=== PATIENT | male | born 1945 | race Caucasian/White ===

== ENCOUNTER 2019-01-28 18:30 | Emergency (ER) | payer BC ==
[2019-01-28] MEDS ORDERED: IPRATROPIUM/ALBUTEROL (0.5MG/3MG) NEB INH ONE (18:56)
[2019-01-28] MEDS ORDERED: METHYLPREDNISOLONE PF 125MG/VIAL IVP ONE (18:56)
--- NOTE | 2019-01-28 19:05 | Emergency Department Record ---
History of Present Illness - General Chief Complaint: Shortness of breath Stated Complaint: FLORA Time Seen by Provider: 01/28/19 18:48 Source: Patient Mode of Arrival: Wheelchair Limitations: No limitations - History of Present Illness Initial Comments: pt has been increasingly sob over several days with sats down to upper 80s. hx copd. MD Complaint: Shortness of breath Onset/Timin -: Days(s) Consistency: Constant Improves With: Nothing Worsens With: Coughing Known History Of: COPD Associated Symptoms: Cough Treatments Prior to Arrival: None - Related Data Home Oxygen Therapy: Yes Home Oxygen Amount: 2 Liters Home Medications Medication Instructions Recorded Confirmed Last Taken Albuterol Sulfate [Proair Hfa] 1 - 2 puff IH .EVERY 4-6 HOURS PRN 01/28/19 01/28/19 Unknown Cyanocobalamin (Vitamin B-12) 1,000 mcg PO DAILY 01/28/19 01/28/19 Unknown [Vitamin B12] Glucos Sul 2Kcl/MSM/Chond/C/Mn 1 each PO BID 01/28/19 01/28/19 Unknown [Glucosamine Chondroitin Cap] Magnesium Oxide 400 mg PO DAILY 01/28/19 01/28/19 Unknown Potassium Chloride [Klor-Con M20] 20 meq PO DAILY 01/28/19 01/28/19 Unknown Previous Rx's Medication Instructions Recorded Amoxicillin/Potassium Clav 1 each PO BID #14 tablet 01/28/19 [Augmentin 875Mg/125Mg] Allergies Allergy/AdvReac Type Severity Reaction Status Date / Time Sulfa (Sulfonamide Allergy HIVES Verified 01/28/19 18:42 Antibiotics) Travel Screening - Travel/Exposure Within Last 30 Days Have you traveled within the last 30 days?: No Review of Systems Reviewed: No additional complaints except as noted below Constitutional: Reports: As per HPI. Denies: Chills, Fever, Malaise, Night sweats, Weakness, Weight change Eyes: Reports: As per HPI. Denies: Eye discharge, Eye pain, Photophobia, Vision change ENT: Reports: As per HPI. Denies: Congestion, Dental pain, Ear pain, Epistaxis, Hearing loss, Throat pain Respiratory: Reports: As per HPI, Cough, Dyspnea. Denies: Hemoptysis, Stridor, Wheezes Cardiovascular: Reports: As per HPI. Denies: Arrhythmia, Chest pain, Dyspnea on exertion, Edema, Murmurs, Orthopnea, Palpitations, Paroxysmal nocturnal dyspnea, Rheumatic Fever, Syncope Endocrine: Reports: As per HPI. Denies: Fatigue, Heat or cold intolerance, Polydipsia, Polyuria Gastrointestinal: Reports: As per HPI. Denies: Abdominal pain, Constipation, Diarrhea, Hematemesis, Hematochezia, Melena, Nausea, Vomiting Genitourinary: Reports: As per HPI. Denies: Dysuria, Frequency, Hematuria, Incontinence, Retention, Testicular pain, Testicular mass, Urgency Musculoskeletal: Reports: As per HPI. Denies: Arthralgia, Back pain, Gout, Joint swelling, Myalgia, Neck pain Skin: Reports: As per HPI. Denies: Bruising, Change in color, Change in hair/nails, Lesions, Pruritus, Rash Neurological: Reports: As per HPI. Denies: Abnormal gait, Confusion, Headache, Numbness, Paresthesias, Seizure, Tingling, Tremors, Vertigo, Weakness Psychiatric: Reports: As per HPI. Denies: Anxiety, Auditory hallucinations, Depression, Homicidal thoughts, Suicidal thoughts, Visual hallucinations Hematological/Lymphatic: Reports: As per HPI. Denies: Anemia, Blood Clots, Easy bleeding, Easy bruising, Swollen glands Past Medical History - SOCIAL HISTORY Smoking Status: Former smoker Alcohol Use: None Drug Use: None - RESPIRATORY Hx Respiratory Disorders: Yes Hx COPD: Yes - CARDIOVASCULAR Hx Cardio Disorders: Yes Hx Irregular Heartbeat: Yes (afib) Hx Pacemaker/Defib: Yes - NEURO Hx Neuro Disorders: No - GI Hx GI Disorders: No - Hx Genitourinary Disorders: Yes Hx Kidney Stones: Yes - ENDOCRINE Hx Endocrine Disorders: Yes Hx Diabetes: Yes Hx Thyroid Disease: No - MUSCULOSKELETAL Hx Musculoskeletal Disorders: Yes Hx Arthritis: Yes - PSYCH Hx Psych Problems: No - HEMATOLOGY/ONCOLOGY Hx Hematology/Oncology Disorders: Yes Hx Anemia: Yes Family Medical History Any Significant Family History?: No Physical Exam - General General Appearance: Alert, Oriented x3, Cooperative, Mild distress - Head Head exam: Normal inspection - Eye Eye exam: Normal appearance, PERRL, EOMI Pupils: Normal accommodation - ENT ENT exam: Normal exam, Mucous membranes moist, Normal external ear exam, Normal orophraynx Ear exam: Normal external inspection. negative: External canal tenderness Nasal Exam: Normal inspection. negative: Discharge, Sinus tenderness Mouth exam: Normal external inspection, Tongue normal Teeth exam: Normal inspection. negative: Dental caries Throat exam: Normal inspection. negative: Tonsillar erythema, Tonsillar exudate - Neck Neck exam: Normal inspection, Full ROM. negative: Tenderness - Respiratory Respiratory exam: Decreased breath sounds. negative: Respiratory distress - Cardiovascular Cardiovascular Exam: Regular rate, Normal rhythm, Normal heart sounds - GI/Abdominal GI/Abdominal exam: Soft, Normal bowel sounds. negative: Tenderness - Rectal Rectal exam: Deferred - exam: Deferred - Extremities Extremities exam: Normal inspection, Full ROM, Normal capillary refill. negative: Tenderness - Back Back exam: Reports: Normal inspection, Full ROM. Denies: Muscle spasm, Rash noted, Tenderness - Neurological Neurological exam: Alert, CN II-XII intact, Normal gait, Oriented X3 - Psychiatric Psychiatric exam: Normal affect, Normal mood - Skin Skin exam: Dry, Intact, Normal color, Warm Course Vital Signs 01/28/19 18:31 Temperature 99.1 F Pulse Rate 74 Respiratory 24 Rate Blood Pressure 133/66 Pulse Ox 99 - Reevaluation(s) Reevaluation #1: 01/28/19 21:13 pt feels much better. he wants to go home Medical Decision Making - Lab Data Result diagrams: 01/28/19 18:40 01/28/19 18:40 Disposition Disposition: Discharge Clinical Impression: Pneumonia Qualifiers: Pneumonia type: due to unspecified organism Laterality: bilateral Lung loca tion: unspecified part of lung Qualified Code(s): J18.9 - Pneumonia, unspecified organism COPD (chronic obstructive pulmonary disease) Qualifiers: COPD type: COPD with acute lower respiratory infection Qualified Code(s): J44.0 - Chronic obstructive pulmonary disease with acute lower respiratory infection Disposition: Home, Self-Care Condition: (1) Good Instructions: Bacterial Pneumonia (ED), COPD (Chronic Obstructive Pulmonary Disease) (ED) Additional Instructions: follow up with family doctor in next 2 days. return sooner if worse. wear oxygen for next few days. Prescriptions: Amoxicillin/Potassium Clav [Augmentin 875Mg/125Mg] 1 each PO BID #14 tablet Forms: Patient Portal Access Quality - Quality Measures Quality Measures: N/A - Blood Pressure Screening Does Patient Have Any of the Following: No Blood Pressure Classification: Pre-Hypertensive BP Reading Systolic Measurement: 133 Diastolic Measurement: 66 Screening for High Blood Pressure: < Pre-Hypertensive BP, F/U Documented > [G8950] Pre-Hypertensive Follow-up Interventions: Follow-up with rescreen every year.
[2019-01-28 19:06] LABS: HEMATOCRIT 41.7 % (42.0-52.0); HEMOGLOBIN 13.6 gm/dl (14.0-18.0); MEAN CELL VOLUME 93.1 fl (81-97); MEAN CORPUSCULAR HEMOGLOBIN 30.3 pg (27-33); MEAN CORPUSCULAR HGB CONC 32.6 g/dl (32-36); MEAN PLATELET VOLUME 10.8 fl (7.4-10.4); PLATELET COUNT 239 K/uL (130-400); RED BLOOD COUNT 4.48 M/uL (4.40-5.70); RED CELL DISTRIBUTION WIDTH 14.5 % (11.5-14.5); WHITE BLOOD COUNT W/O DIFF 11.3 K/uL (4.2-12.2)
[2019-01-28 19:15] LABS: BLOOD UREA NITROGEN 16 mg/dL (8-23); CREATININE 0.9 mg/dL (0.7-1.2); EST GLOMERULAR FILTRATION RATE > 60 mL/min
[2019-01-28 19:16] LABS: TOTAL PROTEIN 7.1 g/dL (6.6-8.7)
[2019-01-28 19:18] LABS: GLUCOSE,RANDOM 124 mg/dL (74-109)
[2019-01-28 19:20] LABS: ALT/SGPT 19 U/L (<41); AST/SGOT 16 U/L (10.0-50.0)
[2019-01-28 19:21] LABS: ALB/GLOB RATIO 1.4 (1.1-1.8); ALBUMIN 4.1 g/dL (4.0-5.0); ALKALINE PHOSPHATASE 86 U/L (40-129)
[2019-01-28 19:22] LABS: ABSOLUTE NEUTROPHIL COUNT 9.94
[2019-01-28 19:31] LABS: INFLUENZA A NEGATIVE (NEGATIVE); INFLUENZA B NEGATIVE (NEGATIVE)
[2019-01-28] MEDS ORDERED: CEFTRIAXONE 1GM/50ML BAG 1 GM/50 ML BAG IVPB ONE (20:38)
[2019-01-28] MEDS ORDERED: LEVOFLOXACIN 250MG IVPB 250 MG/50 ML BAG IVPB ONE (20:40)
--- NOTE | 2019-01-30 13:59 | RADIOLOGY REPORT ---
EXAM: CHEST, TWO VIEWS HISTORY: PATIENT HAS COUGH. TECHNIQUE: Two views of the chest are provided without comparison examinations. FINDINGS: The cardiomediastinal silhouette is within normal limits for size and contour. There is a left anterior chest wall pacemaker identified. Lead tips are identified entering the left subclavian vein and terminating in the region of the right atrium and right ventricle. Patchy infiltrates are suspected within the right upper, right lower, and left lower lobes. No pneumothorax is noted. No pleural effusions are identified. IMPRESSION: PATCHY INFILTRATES ARE SUSPECTED WITHIN THE RIGHT UPPER, RIGHT LOWER, AND LEFT LOWER LOBES. THESE FINDINGS MAY REPRESENT PNEUMONIA. FOLLOW-UP PA AND LATERAL VIEWS OF THE CHEST CAN BE OBTAINED UNTIL RESOLUTION OF FINDINGS. JOB NUMBER: [id number] MTDD
== END 2019-01-28 22:04 | disposition home or self-care (01) ==
LOC: ER 18:30
DX: J18.9 Pneumonia, unspecified organism (principal); J44.0 Chronic obstructive pulmonary disease with (acute) lower respiratory infection; I48.91 Unspecified atrial fibrillation; E11.9 Type 2 diabetes mellitus without complications; Z79.4 Long term (current) use of insulin; Z87.891 Personal history of nicotine dependence; Z95.0 Presence of cardiac pacemaker
CPT/HCPCS: 99284 ×2; 96365; 96375; 80053; 87400; 85379; 85027; 83880; 71046; 94640; 93005; 93010; J1956; J2930

== ENCOUNTER 2019-01-31 11:26 | Observation (INO) | payer BC ==
[2019-01-31] MEDS ORDERED: IPRATROPIUM/ALBUTEROL (0.5MG/3MG) NEB INH ONE (11:39)
--- NOTE | 2019-01-31 11:44 | Emergency Department Record ---
History of Present Illness - General Chief Complaint: Difficulty Breathing Stated Complaint: FLORA Time Seen by Provider: 01/31/19 11:29 Source: Patient Mode of Arrival: Ambulatory Limitations: No limitations - History of Present Illness Initial Comments: The patient is here due to a week of SOB and cough. He does have a hx of COPD and is on home O2 as needed and has needed it more the last few days. He also has been coughing more with more dyspnea. The patient was here in the ER 3 days ago and was diagnosed with pneumonia and was placed on Augmentin but is not better. MD Complaint: Cough, Shortness of breath Onset/Timin -: Days(s) Severity scale (1-10): 4 Quality: Aching Consistency: Constant, Intermittent Known History Of: COPD, Recurrent pneumonia - Related Data Home Oxygen Therapy: Yes Home Oxygen Amount: 2 Liters Previous Rx's Medication Instructions Recorded Amoxicillin/Potassium Clav 1 each PO BID #14 tablet 01/28/19 [Augmentin 875Mg/125Mg] Allergies Allergy/AdvReac Type Severity Reaction Status Date / Time Sulfa (Sulfonamide Allergy HIVES Verified 01/31/19 11:35 Antibiotics) Travel Screening - Travel/Exposure Within Last 30 Days Have you traveled within the last 30 days?: No - Travel/Exposure Within Last Year Have you traveled outside the [place] in the last year?: No - Additonal Travel Details Have you been exposed to anyone with a communicable illness?: No - Travel Symptoms Symptom Screening: None Review of Systems Constitutional: Reports: Malaise. Denies: Chills, Fever Eyes: Denies: Eye discharge ENT: Reports: Congestion Respiratory: Reports: Cough, Dyspnea. Denies: Hemoptysis Cardiovascular: Denies: Arrhythmia, Chest pain Endocrine: Reports: Fatigue Gastrointestinal: Denies: Nausea Genitourinary: Denies: Dysuria Musculoskeletal: Denies: Arthralgia Skin: Denies: Bruising Past Medical History - SOCIAL HISTORY Smoking Status: Former smoker Alcohol Use: None Drug Use: None - RESPIRATORY Hx Respiratory Disorders: Yes Hx COPD: Yes - CARDIOVASCULAR Hx Cardio Disorders: Yes Hx Irregular Heartbeat: Yes (afib) Hx Pacemaker/Defib: Yes - NEURO Hx Neuro Disorders: No - GI Hx GI Disorders: No - Hx Genitourinary Disorders: Yes Hx Kidney Stones: Yes - ENDOCRINE Hx Endocrine Disorders: Yes Hx Diabetes: Yes Hx Thyroid Disease: No - MUSCULOSKELETAL Hx Musculoskeletal Disorders: Yes Hx Arthritis: Yes - PSYCH Hx Psych Problems: No - HEMATOLOGY/ONCOLOGY Hx Hematology/Oncology Disorders: Yes Hx Anemia: Yes Family Medical History Any Significant Family History?: Yes Physical Exam - General General Appearance: Alert, Oriented x3, Cooperative, Mild distress (due to FLORA.) - Head Head exam: Atraumatic, Normocephalic, Normal inspection - Eye Eye exam: Normal appearance, PERRL - ENT Throat exam: Normal inspection. negative: Tonsillar erythema, Tonsillar exudate - Neck Neck exam: Normal inspection, Full ROM. negative: Tenderness - Respiratory Respiratory exam: Decreased breath sounds, Wheezes (at the bases.). negative: Normal lung sounds bilaterally, Rhonchi, Stridor - Cardiovascular Cardiovascular Exam: Regular rate, Normal rhythm, Normal heart sounds. negative: Diastolic murmur - GI/Abdominal GI/Abdominal exam: Soft, Normal bowel sounds. negative: Tenderness - Extremities Extremities exam: Normal inspection, Full ROM, Normal capillary refill. negati ve: Tenderness - Back Back exam: Reports: Normal inspection - Neurological Neurological exam: Alert. negative: Motor sensory deficit - Psychiatric Psychiatric exam: negative: Anxious - Skin Skin exam: negative: Rash Course Vital Signs 01/31/19 11:29 Temperature 98.3 F Pulse Rate 76 Respiratory 18 Rate Blood Pressure 136/69 Pulse Ox 91 L - Reevaluation(s) Reevaluation #1: The patient is doing a lot better at this time. His breathing is improved and he is able to walk around on his own with no problems. I did discuss the need to admit him to the hospital and he did agree. I also did discuss the case with Anni Hubbard ([employer]) who did accept the patient for admission. On exam his lungs are much improved and clear at this time with no wheezing or rhonchi. The patient presently has very good aeration. 01/31/19 13:23 Medical Decision Making - Data Complexity MDM Data: Labs Ordered and/or Reviewed, X-Ray Ordered and/or Reviewed, EKG Ordered and/or Reviewed - Lab Data Result diagrams: 01/31/19 11:39 01/31/19 11:39 - EKG Data -: EKG Interpreted by Me EKG: Abnormal EKG (NSR at 73, ST depression V1-3. possible repolarization abnormalities.) - Radiology Data Radiology results: Report reviewed (CXR: Neg for any acute changes.) Disposition Disposition: Admit Clinical Impression: COPD (chronic obstructive pulmonary disease) Qualifiers: COPD type: unspecified COPD Qualified Code(s): J44.9 - Chronic obstructive pulmonary disease, unspecified Disposition: Still a Patient at [facility] Decision to Admit: Admit from ER Decision to Admit Date: 01/31/19 Decision to Admit Time: 13:25 Accepting Physician: Mihai Time Discussed w/Accepting Physician: 13:25 Condition: (2) Stable Forms: Patient Portal Access Time of Disposition: 13:25 Quality - Quality Measures Quality Measures: N/A - Blood Pressure Screening View Details: Yes Does Patient Have Any of the Following: No Blood Pressure Classification: Pre-Hypertensive BP Reading Systolic Measurement: 136 Diastolic Measurement: 69 Screening for High Blood Pressure: < Pre-Hypertensive BP, F/U Documented > [G8950] Pre-Hypertensive Follow-up Interventions: Referral to alternative/primary care provider.
[2019-01-31 11:49] LABS: ABSOLUTE NEUTROPHIL COUNT 8.83; HEMOGLOBIN 13.6 gm/dl (14.0-18.0); MEAN CELL VOLUME 94.9 fl (81-97); MEAN CORPUSCULAR HGB CONC 31.6 g/dl (32-36); MEAN PLATELET VOLUME 10.6 fl (7.4-10.4); PLATELET COUNT 241 K/uL (130-400); RED BLOOD COUNT 4.53 M/uL (4.40-5.70); RED CELL DISTRIBUTION WIDTH 14.6 % (11.5-14.5); WHITE BLOOD COUNT W/O DIFF 10.7 K/uL (4.2-12.2)
[2019-01-31 12:08] LABS: BLOOD UREA NITROGEN 22 mg/dL (8-23); EST GLOMERULAR FILTRATION RATE > 60 mL/min; TOTAL PROTEIN 6.8 g/dL (6.6-8.7)
[2019-01-31 12:09] LABS: INR 1.2; PARTIAL THROMBOPLASTIN TIME 33.4 SECONDS (24.5-39.1); PROTHROMBIN TIME (PATIENT) 12.3 SECONDS (9.5-12.1)
[2019-01-31 12:10] LABS: GLUCOSE,RANDOM 124 mg/dL (74-109)
[2019-01-31 12:13] LABS: ALB/GLOB RATIO 1.4 (1.1-1.8); ALKALINE PHOSPHATASE 78 U/L (40-129); ALT/SGPT 30 U/L (<41); AST/SGOT 23 U/L (10.0-50.0)
[2019-01-31] MEDS ORDERED: FUROSEMIDE IV 40MG/4ML VIAL IVP ONE (12:48)
[2019-01-31] MEDS ORDERED: METHYLPREDNISOLONE PF 125MG/VIAL IVP ONE (13:05)
[2019-01-31] MEDS ORDERED: ALBUTEROL SULFATE (0.083%) 2.5 MG/3 ML NEB INH ONE (13:05)
[2019-01-31 13:07] LABS: ARTERIAL BLD GAS O2 SATURATION 93.1 % (95-98); ARTERIAL BLOOD GAS BASE EXCESS 5.6 mmol/L (-2 - 3); ARTERIAL BLOOD GAS HCO3 31.6 mmol/L (18-23); ARTERIAL BLOOD GAS PCO2 54.7 mmHg (35-48); ARTERIAL BLOOD GAS pH 7.38 (7.35-7.45); METHEMOGLOBIN 1.3 % (0.0-1.5); O2 HEMOGLOBIN 90.1 % vol (94-99); TOTAL HEMOGLOBIN 12.5 g/dl (14-18)
[2019-01-31 13:08] LABS: ALLEN TEST PASS
[2019-01-31] MEDS ORDERED: ACETAMINOPHEN 500 MG TABLET PO PRN (14:16)
[2019-01-31] MEDS ORDERED: NOVOLOG FLEXPEN (INSULIN ASPART) 100 UNITS/ML SQ SCH (14:16)
[2019-01-31] MEDS: CEFTRIAXONE 1GM/50ML BAG 1 GM/50 ML BAG IVPB SCH ×2 (15:16→23:03)
[2019-01-31] MEDS: DOXYCYCLINE HYCLATE 100 MG CAPSULE PO SCH ×2 (15:17→21:05)
[2019-01-31] MEDS: IPRATROPIUM/ALBUTEROL (0.5MG/3MG) NEB INH SCH ×3 (15:27→22:53)
--- NOTE | 2019-01-31 16:55 | History & Physical ---
History of Present Illness - Date of Service Date of Service for History & Physical: 02/01/19 - History of Present Illness Admitting Diagnosis: 1. Acute COPD Exacerbation. History of Present Illness: 73 yo admitted for COPD exacerbation. pt reports symptoms starting Sunday, his daughter had a URI but she has since recovered. Pt was seen by PCP, DX with PNA and given Augmentin. Pt reports increased shortness of breath, more productive cough of white thick sputum, and increased BLE edema while taking the antibiotic. PMH Afib, DM, PPM, CHF, and COPD. Pt presented to ER Temp 98.3, HR 76, BP 136/69, RR 18, 91% 2L WBC 10.7, Hgb 13.6, Hct 43, Plt 241 Na 141, K 4.3, BUN 22, Cr 1, GFR >60, Glcuose 124 pro BNP 1900 Trop < 0.010 ABG pCO2 54.7, pO2 65, HCO3 31.6, pH 7.8, O2 sat 93 Pt 12.3, INR 1.2, Aptt 33.4 CXR hyperinflation from COPD, not acute process, L base atelectasis pt given Lasix 40mg IVP, duo neb tx, 60mg solumedrol Admit for COPD exacerbation 01/30/19 pt resting in bed, mild resp distress noted. Lungs sounds are wheezing and rhonchi. heart rate irregular, normal heart sounds, +1-+2 pitting edema BLE. pt moving all extremities, no difficulty repositioning self in bed. Pt has requested to take all his own meds and insulin, [employer] pharmacist addressing med list for home med use. Pt reports using spiriva and alb MDI but no ICS/LABA. Alb neb machine and meds ordered this admission and will be delivered to home. POC IV abx, steroids, IV lasix and monitor electrolytes. Pt needs to have decreased shortness of breath and decreased edema in BLE. Pt aggres with POC PCP Aftab Merino Travel Screening - Travel/Exposure Within Last 30 Days Have you traveled within the last 30 days?: No - Travel/Exposure Within Last Year Have you traveled outside the [place] in the last year?: No - Additonal Travel Details Have you been exposed to anyone with a communicable illness?: No - Travel Symptoms Symptom Screening: None Review of Systems Constitutional: Reports: Malaise. Denies: Chills, Fever Eyes: Denies: Eye discharge ENT: Reports: Congestion Respiratory: Reports: Cough, Dyspnea. Denies: Hemoptysis Cardiovascular: Denies: Arrhythmia, Chest pain Endocrine: Reports: Fatigue Gastrointestinal: Denies: Nausea Genitourinary: Denies: Dysuria Musculoskeletal: Denies: Arthralgia Skin: Denies: Bruising Past Medical History - SOCIAL HISTORY Smoking Status: Former smoker Alcohol Use: None Drug Use: None - RESPIRATORY Hx Respiratory Disorders: Yes Hx COPD: Yes - CARDIOVASCULAR Hx Cardio Disorders: Yes Hx Irregular Heartbeat: Yes (afib) Hx Pacemaker/Defib: Yes - NEURO Hx Neuro Disorders: No - GI Hx GI Disorders: No - Hx Genitourinary Disorders: Yes Hx Kidney Stones: Yes - ENDOCRINE Hx Endocrine Disorders: Yes Hx Diabetes: Yes Hx Thyroid Disease: No - MUSCULOSKELETAL Hx Musculoskeletal Disorders: Yes Hx Arthritis: Yes - PSYCH Hx Psych Problems: No - HEMATOLOGY/ONCOLOGY Hx Hematology/Oncology Disorders: Yes Hx Anemia: Yes (iron deficiency) Family Medical History Any Significant Family History?: Yes Hx Cancer: Mother Hx Diabetes: Brother/Sister Hx Heart Disease: Father, Mother, Brother/Sister Hx Resp Disorders: Mother Hx Stroke: Mother H&P Meds/Allergies - Allergies Allergies: Allergies Allergy/AdvReac Type Severity Reaction Status Date / Time Sulfa (Sulfonamide Allergy HIVES Verified 01/31/19 11:35 Antibiotics) - Home Medications Previous Rx's Medication Instructions Recorded Amoxicillin/Potassium Clav 1 each PO BID #14 tablet 01/28/19 [Augmentin 875Mg/125Mg] - Active Medications Active Medications: Current Medications Acetaminophen (Tylenol 500mg Tab) 500 mg PO Q6H PRN PRN Reason: PAIN - MILD(1-4)/FEVER Albuterol/Ipratropium (Duoneb) 3 ml INH RESP.Q4H.WA [facility] Last Admin: 01/31/19 15:27 Dose: 3 ml Documented by: Doxycycline Hyclate (Vibramycin) 100 mg PO BID [facility] Last Admin: 01/31/19 15:17 Dose: 100 mg Documented by: CEFTRIAXONE 1GM/50ML BAG (Ceftriaxone 1 Gm-D5w Bag) 1 gm in 50 mls @ 100 mls/hr IVPB Q12HR [facility] Last Admin: 01/31/19 15:16 Dose: 100 mls/hr Documented by: Insulin Aspart (Novolog Flexpen) 10 unit SQ 0745,1145 [facility] Insulin Aspart (Novolog Flexpen) 15 unit SQ 1715 [facility] Insulin Aspart (Novolog Flexpen) 1 unit SQ TIDINS [facility]; Protocol Methylprednisolone Sodium Succinate (Solu-Medrol) 60 mg IVP DAILY [facility] Non-Formulary Medication (Dofetilide [Dofetilide]) 500 mcg PO BID [facility] Non-Formulary Medication (Insulin Glargine,Hum.Rec.Anlog [Lantus Solostar]) 90 units SQ QAM [facility] Non-Formulary Medication (Losartan Potassium [Losartan Potassium]) 50 mg PO DAILY [facility] Non-Formulary Medication (Metoprolol Succinate [Toprol Xl]) 100 mg PO DAILY [facility] Patient Own Med: (Diltiazem Er 180 Mg) 1 each PO 1600 [facility] Patient Own Med: (Furosemide 40 Mg) 1 each PO BIDDIUR [facility] Patient Own Med: (Metformin Er 500 Mg) 2 each PO BID [facility] Patient Own Med: (Pantoprazole 40 Mg) 1 each PO QHS [facility] Patient Own Med: (Potassium 20 Meq) 1 each PO DAILY [facility] Patient Own Med: (Rivaroxaban 20 Mg) 1 each PO 1730 [facility] Patient Own Med: (Simvastatin 20 Mg) 1 each PO QHS [facility] Physical Exam - Vital Signs Vital Signs: Vital Signs - Last 24 Hrs Temp Pulse Pulse Pulse Resp BP BP 01/31/19 15:28 80 18 01/31/19 14:25 97.2 F L 76 18 170/70 01/31/19 14:16 74 18 124/72 01/31/19 13:39 70 18 01/31/19 12:49 74 16 01/31/19 11:45 73 20 01/31/19 11:29 98.3 F 76 18 136/69 Pulse Ox 01/31/19 15:28 96 01/31/19 14:25 95 01/31/19 14:16 92 L 01/31/19 13:39 94 L 01/31/19 12:49 91 L 01/31/19 11:45 94 L 01/31/19 11:29 91 L - General General Appearance: Alert, Oriented x3, Cooperative, Mild distress (due to FLORA.) Limitations: No limitations - Head Head exam: Atraumatic, Normocephalic, Normal inspection - Eye Eye exam: Normal appearance, PERRL - ENT ENT exam: Mucous membranes dry Ear exam: Normal external inspection Mouth exam: Normal external inspection Throat exam: Normal inspection. negative: Tonsillar erythema, Tonsillar exudate - Neck Neck exam: Normal inspection, Full ROM. negative: Tenderness - Respiratory Respiratory exam: Decreased breath sounds, Wheezes (at the bases.). negative: Normal lung sounds bilaterally, Rhonchi, Stridor - Cardiovascular Cardiovascular Exam: Normal heart sounds. negative: Diastolic murmur Peripheral Pulses: 3+: Radial (R), Radial (L), Dorsalis Pedis (R), Dorsalis Pedis (L) - GI/Abdominal GI/Abdominal exam: Soft, Normal bowel sounds. negative: Tenderness - Rectal Rectal exam: Deferred - exam: Deferred - Extremities Extremities exam: Normal inspection, Full ROM, Normal capillary refill. negative: Tenderness - Back Back exam: Reports: Normal inspection - Neurological Neurological exam: Alert. negative: Motor sensory deficit - Psychiatric Psychiatric exam: negative: Anxious - Skin Skin exam: Dry, Intact, Warm. negative: Rash Results - Labs Result Diagrams: 02/01/19 05:55 02/01/19 05:55 Labs Last 24 Hours: Laboratory Results - last 24 hr 01/31/19 01/31/19 01/31/19 11:39 11:39 11:39 WBC 10.7 RBC 4.53 Hgb 13.6 L Hct 43.0 MCV 94.9 MCH 30.0 MCHC 31.6 L RDW 14.6 H Plt Count 241 MPV 10.6 H Neutrophils % 83.0 H Band Neutrophils % 2.0 Eosinophils % Not Reportable Basophils % Not Reportable Absolute Neutrophils 8.83 Lymphocytes 6.0 L Monocytes 7.0 Basophils 0.0 Eosinophil Count 2.0 PT INR APTT Puncture Site Right wrist pCO2 54.7 H pO2 65.0 L HCO3 31.6 H Oxyhemoglobin 90.1 L ABG pH 7.38 ABG O2 Saturation 93.1 L ABG Base Excess 5.6 H Tyrell Test Pass Carboxyhemoglobin 2.0 H Methemoglobin 1.3 Total Hemoglobin 12.5 L Actual Respiration Rate 20.0 H FiO2 92.0 Sodium 141 Potassium 4.3 Chloride 97 L Carbon Dioxide 30.0 H Anion Gap 14.0 BUN 22 Creatinine 1.0 Estimated GFR > 60 Random Glucose 124 H Calcium 8.9 Total Bilirubin 0.70 AST 23 ALT 30 Alkaline Phosphatase 78 Troponin T NT-Pro-B Natriuret Pep 1900.00 H Total Protein 6.8 Albumin 4.0 Globulin 2.8 Albumin/Globulin Ratio 1.4 01/31/19 01/31/19 11:39 11:39 WBC RBC Hgb Hct MCV MCH MCHC RDW Plt Count MPV Neutrophils % Band Neutrophils % Eosinophils % Basophils % Absolute Neutrophils Lymphocytes Monocytes Basophils Eosinophil Count PT 12.3 H INR 1.2 APTT 33.4 Puncture Site pCO2 pO2 HCO3 Oxyhemoglobin ABG pH ABG O2 Saturation ABG Base Excess Tyrell Test Carboxyhemoglobin Methemoglobin Total Hemoglobin Actual Respiration Rate FiO2 Sodium Potassium Chloride Carbon Dioxide Anion Gap BUN Creatinine Estimated GFR Random Glucose Calcium Total Bilirubin AST ALT Alkaline Phosphatase Troponin T < 0.010 NT-Pro-B Natriuret Pep Total Protein Albumin Globulin Albumin/Globulin Ratio - Imaging and Cardiology Chest x-ray Status: Pending (audio clip) VTE H&P Assessment - Risk for VTE Risk for VTE: Yes Risk Level: High Risk Assessment Date: 02/01/19 Risk Assessment Time: 09:02 VTE Orders Placed or Will Be Placed: No VTE Reason for No Prophylaxis: Not Indicated (pt on Xarelto) Plan - Detailed Diagnosis and Plan (1) COPD (chronic obstructive pulmonary disease) Current Visit: Yes Status: Acute Qualifiers: COPD type: unspecified COPD Qualified Code(s): J44.9 - Chronic obstructive pulmonary disease, unspecified Base Code: J44.9 - CHRONIC OBSTRUCTIVE PULMONARY DISEASE, UNSPECIFIED Comment: 01/31/19 -COPD exarbertion -steroids, doxy (r/t contraindication from tikosyn for azith), rocpehin, neb tx, and inhalers (2) Afib Current Visit: Yes Status: Acute Base Code: I48.91 - UNSPECIFIED ATRIAL FIBRILLATION Comment: 01/31/19 -PPM, pt reports on demand starting 77 -rate control metoprolol, diltiazem, tikosyn -anticoagulation Xarelto (3) CHF (congestive heart failure) Current Visit: Yes Status: Acute Base Code: I50.9 - HEART FAILURE, UNSPECIFIED Comment: 01/31/19 -pro NBP 1900, +1-2 pitting edema BLE -lasix 40mg IVP daily -BMP daily (4) Full code status Current Visit: Yes Status: Acute Base Code: Z78.9 - OTHER SPECIFIED HEALTH STATUS Comment: 01/31/19 full code (5) DVT prophylaxis Current Visit: Yes Status: Acute Base Code: Z29.9 - ENCOUNTER FOR PROPHYLACTIC MEASURES, UNSPECIFIED Comment: 01/31/19 -no Lovenox as pt is anticoagulated with Xeralto
[2019-01-31] MEDS: PATIENT OWN MED: FUROSEMIDE 40 MG PO SCH (16:58)
[2019-01-31] MEDS: DILTIAZEM 180 MG PO SCH (16:59)
[2019-01-31] MEDS: NOVOLOG FLEXPEN (INSULIN ASPART) 100 UNITS/ML SQ SCH ×2 (17:16→17:17)
[2019-01-31] MEDS: RIVAROXABAN 20 MG PO SCH ×2 (18:32→18:36)
[2019-01-31] MEDS: PATIENT OWN MED: METFORMIN ER 500 MG PO SCH (21:03)
[2019-01-31] MEDS: PATIENT OWN MED: SIMVASTATIN 20 MG PO SCH (21:04)
[2019-01-31] MEDS: PATIENT OWN MED: PANTOPRAZOLE 40 MG PO SCH (21:04)
[2019-01-31] MEDS: DOFETILIDE 500 MCG PO SCH (21:04)
[2019-01-31] MEDS ORDERED: AMOXICILLIN/POTASSIUM CLAV 875MG/125MG TABLET PO SCH (22:00)
[2019-02-01 06:08] LABS: ABSOLUTE NEUTROPHIL COUNT 8.85; BASO % 0.1 % (0-6); HEMATOCRIT 39.5 % (42.0-52.0); HEMOGLOBIN 12.5 gm/dl (14.0-18.0); LYMPH % 5.5 % (16-45); MEAN CELL VOLUME 93.8 fl (81-97); MEAN CORPUSCULAR HGB CONC 31.6 g/dl (32-36); MEAN PLATELET VOLUME 10.5 fl (7.4-10.4); MONO % 7.2 % (0-9); PLATELET COUNT 233 K/uL (130-400); RED BLOOD COUNT 4.21 M/uL (4.40-5.70); RED CELL DISTRIBUTION WIDTH 14.1 % (11.5-14.5); WHITE BLOOD COUNT W/O DIFF 10.2 K/uL (4.2-12.2)
[2019-02-01 06:09] LABS: MEAN CORPUSCULAR HEMOGLOBIN 29.6 pg (27-33)
[2019-02-01 06:28] LABS: BLOOD UREA NITROGEN 21 mg/dL (8-23); CREATININE 0.9 mg/dL (0.7-1.2); EST GLOMERULAR FILTRATION RATE > 60 mL/min; GLUCOSE,RANDOM 189 mg/dL (74-109)
[2019-02-01] MEDS: IPRATROPIUM/ALBUTEROL (0.5MG/3MG) NEB INH SCH ×5 (07:52→21:44)
[2019-02-01] MEDS: NOVOLOG FLEXPEN (INSULIN ASPART) 100 UNITS/ML SQ SCH ×6 (08:53→17:28)
--- NOTE | 2019-02-01 09:12 | Physician Progress Note ---
Subjective - Date Date of Physician Progress Note: 02/01/19 Objective - Vital Signs Vital Signs: Vital Signs - Last 24 Hrs Temp Pulse Pulse Pulse Resp BP BP 02/01/19 07:56 100 H 18 02/01/19 07:55 98 F 75 18 141/72 02/01/19 06:00 97.9 F 75 20 146/78 02/01/19 00:00 78 18 01/31/19 22:54 76 18 01/31/19 21:00 77 18 01/31/19 20:00 98.1 F 75 22 132/58 01/31/19 19:57 76 18 01/31/19 19:47 74 16 01/31/19 16:00 97.2 F L 79 18 142/60 01/31/19 15:28 80 18 01/31/19 14:25 97.2 F L 76 18 170/70 01/31/19 14:16 74 18 124/72 01/31/19 13:39 70 18 01/31/19 12:49 74 16 01/31/19 11:45 73 20 01/31/19 11:29 98.3 F 76 18 136/69 Pulse Ox 02/01/19 07:56 94 L 02/01/19 07:55 92 L 02/01/19 06:00 93 L 02/01/19 00:00 95 01/31/19 22:54 90 L 01/31/19 21:00 01/31/19 20:00 96 01/31/19 19:57 91 L 01/31/19 19:47 92 L 01/31/19 16:00 95 01/31/19 15:28 96 01/31/19 14:25 95 01/31/19 14:16 92 L 01/31/19 13:39 94 L 01/31/19 12:49 91 L 01/31/19 11:45 94 L 01/31/19 11:29 91 L - General General Appearance: Alert, Oriented x3, Cooperative, Mild distress Limitations: No limitations - Head Head exam: Atraumatic, Normocephalic, Normal inspection - Eye Eye exam: Normal appearance, PERRL - ENT ENT exam: Mucous membranes dry Ear exam: Normal external inspection Mouth exam: Normal external inspection Throat exam: Normal inspection. negative: Tonsillar erythema, Tonsillar exudate - Neck Neck exam: Normal inspection, Full ROM. negative: Tenderness - Respiratory Respiratory exam: Decreased breath sounds, Wheezes (at the bases.). negative: Normal lung sounds bilaterally, Rhonchi, Stridor - Cardiovascular Cardiovascular Exam: Normal heart sounds. negative: Diastolic murmur Peripheral Pulses: 3+: Radial (R), Radial (L), Dorsalis Pedis (R), Dorsalis Pedis (L) - GI/Abdominal GI/Abdominal exam: Soft, Normal bowel sounds. negative: Tenderness - Rectal Rectal exam: Deferred - exam: Deferred - Extremities Extremities exam: Normal inspection, Full ROM, Normal capillary refill. negative: Tenderness - Back Back exam: Reports: Normal inspection - Neurological Neurological exam: Alert. negative: Motor sensory deficit - Psychiatric Psychiatric exam: negative: Anxious - Skin Skin exam: Dry, Intact, Warm. negative: Rash Assessment and Plan - Assessment and Plan (1) COPD (chronic obstructive pulmonary disease) Current Visit: Yes Status: Acute Qualifiers: COPD type: unspecified COPD Qualified Code(s): J44.9 - Chronic obstructive pulmonary disease, unspecified Base Code: J44.9 - CHRONIC OBSTRUCTIVE PULMONARY DISEASE, UNSPECIFIED Comment: 02/01/19 -pt reports improved SOB but has noted excertion with eating breakfast -continue current POC 01/31/19 -COPD exarbertion -steroids, doxy (r/t contraindication from tikosyn for azith), rocpehin, neb tx, and inhalers (2) Afib Current Visit: Yes Status: Acute Base Code: I48.91 - UNSPECIFIED ATRIAL FIBRILLATION Comment: 02/01/19 -PPM, pt reports on demand starting 77 -rate control metoprolol, diltiazem, tikosyn -anticoagulation Xarelto (3) CHF (congestive heart failure) Current Visit: Yes Status: Acute Base Code: I50.9 - HEART FAILURE, UNSPECIFIED Comment: 02/01/19 -K 5 this am, holing K supplement -continue Lasix 40mg IVP, BLE pitting edema remains -pt encouraged to elevate legs while in bed 01/31/19 -pro NBP 1900, +1-2 pitting edema BLE -lasix 40mg IVP daily -BMP daily (4) Full code status Current Visit: Yes Status: Acute Base Code: Z78.9 - OTHER SPECIFIED HEALTH STATUS Comment: 02/01/19 full code (5) DVT prophylaxis Current Visit: Yes Status: Acute Base Code: Z29.9 - ENCOUNTER FOR PROPHYLACTIC MEASURES, UNSPECIFIED Comment: 02/01/19 -no Lovenox as pt is anticoagulated with Xeralto, SCDs while in bed Results - Labs Result Diagrams: 02/01/19 05:55 02/01/19 05:55 Labs Last 24 Hours: Laboratory Results - last 24 hr 01/31/19 01/31/19 01/31/19 11:39 11:39 11:39 WBC 10.7 RBC 4.53 Hgb 13.6 L Hct 43.0 MCV 94.9 MCH 30.0 MCHC 31.6 L RDW 14.6 H Plt Count 241 MPV 10.6 H Neutrophils % 83.0 H Band Neutrophils % 2.0 Lymphocytes % Monocytes % Eosinophils % Not Reportable Basophils % Not Reportable Absolute Neutrophils 8.83 Lymphocytes 6.0 L Monocytes 7.0 Basophils 0.0 Eosinophil Count 2.0 PT INR APTT Puncture Site Right wrist pCO2 54.7 H pO2 65.0 L HCO3 31.6 H Oxyhemoglobin 90.1 L ABG pH 7.38 ABG O2 Saturation 93.1 L ABG Base Excess 5.6 H Tyrell Test Pass Carboxyhemoglobin 2.0 H Methemoglobin 1.3 Total Hemoglobin 12.5 L Actual Respiration Rate 20.0 H FiO2 92.0 Sodium 141 Potassium 4.3 Chloride 97 L Carbon Dioxide 30.0 H Anion Gap 14.0 BUN 22 Creatinine 1.0 Estimated GFR > 60 POC Glucose Random Glucose 124 H Calcium 8.9 Total Bilirubin 0.70 AST 23 ALT 30 Alkaline Phosphatase 78 Troponin T NT-Pro-B Natriuret Pep 1900.00 H Total Protein 6.8 Albumin 4.0 Globulin 2.8 Albumin/Globulin Ratio 1.4 01/31/19 01/31/19 01/31/19 11:39 11:39 17:20 WBC RBC Hgb Hct MCV MCH MCHC RDW Plt Count MPV Neutrophils % Band Neutrophils % Lymphocytes % Monocytes % Eosinophils % Basophils % Absolute Neutrophils Lymphocytes Monocytes Basophils Eosinophil Count PT 12.3 H INR 1.2 APTT 33.4 Puncture Site pCO2 pO2 HCO3 Oxyhemoglobin ABG pH ABG O2 Saturation ABG Base Excess Tyrell Test Carboxyhemoglobin Methemoglobin Total Hemoglobin Actual Respiration Rate FiO2 Sodium Potassium Chloride Carbon Dioxide Anion Gap BUN Creatinine Estimated GFR POC Glucose 217 H Random Glucose Calcium Total Bilirubin AST ALT Alkaline Phosphatase Troponin T < 0.010 NT-Pro-B Natriuret Pep Total Protein Albumin Globulin Albumin/Globulin Ratio 01/31/19 02/01/19 02/01/19 22:00 05:55 05:55 WBC 10.2 RBC 4.21 L Hgb 12.5 L Hct 39.5 L MCV 93.8 MCH 29.6 MCHC 31.6 L RDW 14.1 Plt Count 233 MPV 10.5 H Neutrophils % 86.0 H Band Neutrophils % 3.0 Lymphocytes % 5.5 L Monocytes % 7.2 Eosinophils % 0.0 Basophils % 0.1 Absolute Neutrophils 8.85 Lymphocytes 6.0 L Monocytes 5.0 Basophils 0.0 Eosinophil Count 0.0 PT INR APTT Puncture Site pCO2 pO2 HCO3 Oxyhemoglobin ABG pH ABG O2 Saturation ABG Base Excess Tyrell Test Carboxyhemoglobin Methemoglobin Total Hemoglobin Actual Respiration Rate FiO2 Sodium 139 Potassium 5.0 H Chloride 96 L Carbon Dioxide 32.0 H Anion Gap 11.0 BUN 21 Creatinine 0.9 Estimated GFR > 60 POC Glucose 246 H Random Glucose 189 H Calcium 9.0 Total Bilirubin AST ALT Alkaline Phosphatase Troponin T NT-Pro-B Natriuret Pep Total Protein Albumin Globulin Albumin/Globulin Ratio DVT/PE Assessment - Risk for VTE Risk for VTE: No Risk Level: High Risk Assessment Date: 02/01/19 Risk Assessment Time: 09:02 VTE Orders Placed or Will Be Placed: No VTE Reason for No Prophylaxis: Not Indicated (pt on Xarelto) - Active Medicaitons Current Medications: Current Medications Acetaminophen (Tylenol 500mg Tab) 500 mg PO Q6H PRN PRN Reason: PAIN - MILD(1-4)/FEVER Albuterol/Ipratropium (Duoneb) 3 ml INH RESP.Q4H.[facility] Last Admin: 02/01/19 07:52 Dose: 3 ml Documented by: Doxycycline Hyclate (Vibramycin) 100 mg PO BID [facility] Last Admin: 01/31/19 21:05 Dose: 100 mg Documented by: Furosemide (Lasix Iv) 40 mg IVP DAILY [facility] CEFTRIAXONE 1GM/50ML BAG (Ceftriaxone 1 Gm-D5w Bag) 1 gm in 50 mls @ 100 mls/hr IVPB Q12HR [facility] Last Infusion: 01/31/19 23:34 Dose: Infused Documented by: Insulin Aspart (Novolog Flexpen) 10 unit SQ 0745,1145 [facility] Last Admin: 02/01/19 08:53 Dose: Not Given Documented by: Insulin Aspart (Novolog Flexpen) 15 unit SQ 1715 [facility] Last Admin: 01/31/19 17:16 Dose: 15 unit Documented by: Insulin Aspart (Novolog Flexpen) 1 unit SQ TIDINS [facility]; Protocol Last Admin: 02/01/19 08:54 Dose: Not Given Documented by: Methylprednisolone Sodium Succinate (Solu-Medrol) 60 mg IVP DAILY [facility] Non-Formulary Medication (Dofetilide [Dofetilide]) 500 mcg PO BID [facility] Last Admin: 01/31/19 21:04 Dose: 500 mcg Documented by: Non-Formulary Medication (Insulin Glargine,Hum.Rec.Anlog [Lantus Solostar]) 90 units SQ QAM [facility] Non-Formulary Medication (Losartan Potassium [Losartan Potassium]) 50 mg PO DAILY [facility] Non-Formulary Medication (Metoprolol Succinate [Toprol Xl]) 100 mg PO DAILY [facility] Patient Own Med: (Diltiazem Er 180 Mg) 1 each PO 1600 [facility] Last Admin: 01/31/19 16:59 Dose: Not Given Documented by: Patient Own Med: (Furosemide 40 Mg) 1 each PO BIDDIUR [facility] Last Admin: 01/31/19 16:58 Dose: Not Given Documented by: Patient Own Med: (Metformin Er 500 Mg) 2 each PO BID [facility] Last Admin: 01/31/19 21:03 Dose: Not Given Documented by: Patient Own Med: (Pantoprazole 40 Mg) 1 each PO QHS [facility] Last Admin: 01/31/19 21:04 Dose: 1 each Documented by: Patient Own Med: (Potassium 20 Meq) 1 each PO DAILY [facility] Patient Own Med: (Rivaroxaban 20 Mg) 1 each PO 1730 [facility] Last Admin: 01/31/19 18:36 Dose: Not Given Documented by: Patient Own Med: (Simvastatin 20 Mg) 1 each PO QHS [facility] Last Admin: 01/31/19 21:04 Dose: 1 each Documented by: AMI Plan - Labs Result Diagrams: 02/01/19 05:55 02/01/19 05:55
[2019-02-01] MEDS: INSULIN GLARGINE HUM REC ANLOG 90 UNIT SQ SCH (09:44)
[2019-02-01] MEDS: DOFETILIDE 500 MCG PO SCH ×2 (09:44→21:45)
[2019-02-01] MEDS: METOPROLOL SUCCINATE 100 MG PO SCH (09:45)
[2019-02-01] MEDS: Non-Formulary MISC (Losartan Potassium [Losartan Potassium] 50 MG) PO SCH (09:45)
[2019-02-01] MEDS: PATIENT OWN MED: FUROSEMIDE 40 MG PO SCH ×2 (09:46→15:34)
[2019-02-01] MEDS: PATIENT OWN MED: METFORMIN ER 500 MG PO SCH ×2 (09:46→21:40)
[2019-02-01] MEDS: PATIENT OWN MED: POTASSIUM 20 MEQ PO SCH (09:46)
[2019-02-01] MEDS: CEFTRIAXONE 1GM/50ML BAG 1 GM/50 ML BAG IVPB SCH ×2 (09:58→21:39)
[2019-02-01] MEDS: DOXYCYCLINE HYCLATE 100 MG CAPSULE PO SCH ×2 (10:00→21:40)
[2019-02-01] MEDS: UMECLIDINIUM BROMIDE (INCRUSE) 62.5MCG IH SCH (10:12)
[2019-02-01] MEDS: BREO (FLUTICASONE/VILANTEROL) 100MCG/25MCG INHALER INH SCH (10:12)
[2019-02-01] MEDS: METHYLPREDNISOLONE PF 125MG/VIAL IVP SCH (11:45)
[2019-02-01] MEDS: FUROSEMIDE IV 40MG/4ML VIAL IVP SCH (15:32)
[2019-02-01] MEDS: DILTIAZEM 180 MG PO SCH (15:34)
[2019-02-01] MEDS: RIVAROXABAN 20 MG PO SCH (18:38)
[2019-02-01] MEDS: PATIENT OWN MED: PANTOPRAZOLE 40 MG PO SCH (21:40)
[2019-02-01] MEDS: PATIENT OWN MED: SIMVASTATIN 20 MG PO SCH (21:40)
[2019-02-02 06:06] LABS: BLOOD UREA NITROGEN 26 mg/dL (8-23); CREATININE 0.9 mg/dL (0.7-1.2); EST GLOMERULAR FILTRATION RATE > 60 mL/min; GLUCOSE,RANDOM 177 mg/dL (74-109)
[2019-02-02] MEDS: IPRATROPIUM/ALBUTEROL (0.5MG/3MG) NEB INH SCH ×2 (06:10→09:51)
[2019-02-02] MEDS: NOVOLOG FLEXPEN (INSULIN ASPART) 100 UNITS/ML SQ SCH ×4 (08:19→13:11)
--- NOTE | 2019-02-02 09:21 | Discharge Summary ---
Providers Discharge Summary Date: 02/02/19 Date of admission: 01/31/19 14:14 Expected Date of Discharge: 02/02/19 Attending physician: MALA HERCULES Primary care physician: FRANNIE FELIPE M.D. Physical Exam - Vital Signs Vital Signs: Vital Signs - Last 24 Hrs Temp Pulse Pulse Pulse Resp BP Pulse Ox 02/02/19 06:12 71 18 93 L 02/02/19 06:11 71 18 93 L 02/02/19 04:00 97.9 F 70 22 111/51 89 L 02/01/19 21:46 76 16 92 L 02/01/19 21:45 76 16 92 L 02/01/19 21:00 73 18 02/01/19 20:00 97.9 F 74 20 120/62 95 02/01/19 18:11 75 18 96 02/01/19 16:00 97.4 F L 74 16 139/62 94 L 02/01/19 12:00 74 18 146/85 94 L 02/01/19 11:39 74 18 99 02/01/19 10:13 74 18 94 L - General General Appearance: Alert, Oriented x3, Cooperative, No acute distress Limitations: No limitations - Head Head exam: Atraumatic, Normocephalic, Normal inspection - Eye Eye exam: Normal appearance, PERRL - ENT ENT exam: Mucous membranes moist Ear exam: Normal external inspection Mouth exam: Normal external inspection Throat exam: Normal inspection. negative: Tonsillar erythema, Tonsillar exudate - Neck Neck exam: Normal inspection, Full ROM. negative: Tenderness - Respiratory Respiratory exam: Decreased breath sounds, Wheezes (mil). negative: Normal lung sounds bilaterally, Accessory muscle use, Respiratory distress, Rhonchi, Stridor - Cardiovascular Cardiovascular Exam: Normal heart sounds, Irregular rhythm. negative: Diastolic murmur Peripheral Pulses: 3+: Radial (R), Radial (L), Dorsalis Pedis (R), Dorsalis Pedis (L) - GI/Abdominal GI/Abdominal exam: Soft, Normal bowel sounds. negative: Tenderness - Rectal Rectal exam: Deferred - exam: Deferred - Extremities Extremities exam: Normal inspection, Full ROM, Normal capillary refill. negative: Tenderness - Back Back exam: Reports: Normal inspection - Neurological Neurological exam: Alert. negative: Motor sensory deficit - Psychiatric Psychiatric exam: negative: Anxious - Skin Skin exam: Dry, Intact, Warm. negative: Rash Hospitalization - Hospitalization Admission Diagnosis: 1. Acute COPD Exacerbation. - Problem List/Discharge Diagnosis (1) COPD (chronic obstructive pulmonary disease) Current Visit: Yes Status: Acute Discharge Diagnosis: COPD type: unspecified COPD Qualified Code(s): J44.9 - Chronic obstructive pulmonary disease, unspecified Base Code: J44.9 - CHRONIC OBSTRUCTIVE PULMONARY DISEASE, UNSPECIFIED Comment: 02/02/19 -wheezing has decreased, decreased work of breathing, pt is able to speak in full sentences -transition to PO steroids and ABX -continue ICS/LABA and pt has f/u with PCP 02/04/19 -neb machine and meds are being delivered to pt home 02/01/19 -pt reports improved SOB but has noted excertion with eating breakfast -continue current POC 01/31/19 -COPD exarbertion -steroids, doxy (r/t contraindication from tikosyn for azith), rocpehin, neb tx, and inhalers (2) Afib Current Visit: Yes Status: Acute Base Code: I48.91 - UNSPECIFIED ATRIAL FIBRILLATION Comment: 02/02/19 -pt converted to paced rhythm, EKG completed and shows V paced rate 72 02/01/19 -PPM, pt reports on demand starting below 77 -rate control metoprolol, diltiazem, tikosyn -anticoagulation Xarelto (3) CHF (congestive heart failure) Current Visit: Yes Status: Acute Base Code: I50.9 - HEART FAILURE, UNSPECIFIED Comment: 02/02/19 +1 pitting edema, K 4.8,pt getting 2 doses of IVP lasix and then home PO dosing -f/u PCP 02/04/19 02/01/19 -K 5 this am, holding K supplement -continue Lasix 40mg IVP, BLE pitting edema remains -pt encouraged to elevate legs while in bed 01/31/19 -pro NBP 1900, +1-2 pitting edema BLE -lasix 40mg IVP daily -BMP daily (4) Full code status Current Visit: Yes Status: Acute Base Code: Z78.9 - OTHER SPECIFIED HEALTH STATUS Comment: 02/02/19 full code (5) DVT prophylaxis Current Visit: Yes Status: Acute Base Code: Z29.9 - ENCOUNTER FOR PROPHYLACTIC MEASURES, UNSPECIFIED Comment: 02/02/19 -no Lovenox as pt is anticoagulated with Xeralto, SCDs while in bed - Hospitalization Course Disposition: Home, Self-Care Hospital Course: 73 yo admitted for COPD exacerbation. pt reports symptoms starting Sunday, his daughter had a URI but she has since recovered. Pt was seen by PCP, DX with PNA and given Augmentin. Pt reports increased shortness of breath, more productive cough of white thick sputum, and increased BLE edema while taking the antibiotic. PMH Afib, DM, PPM, CHF, and COPD. Pt presented to ER Temp 98.3, HR 76, BP 136/69, RR 18, 91% 2L WBC 10.7, Hgb 13.6, Hct 43, Plt 241 Na 141, K 4.3, BUN 22, Cr 1, GFR >60, Glcuose 124 pro BNP 1900 Trop < 0.010 ABG pCO2 54.7, pO2 65, HCO3 31.6, pH 7.8, O2 sat 93 Pt 12.3, INR 1.2, Aptt 33.4 CXR hyperinflation from COPD, not acute process, L base atelectasis pt given Lasix 40mg IVP, duo neb tx, 60mg solumedrol Admit for COPD exacerbation 01/30/19 pt resting in bed, mild resp distress noted. Lungs sounds are wheezing and rhonchi. heart rate irregular, normal heart sounds, +1-+2 pitting edema BLE. pt moving all extremities, no difficulty repositioning self in bed. Pt has requested to take all his own meds and insulin, [employer] pharmacist addressing med list for home med use. Pt reports using spiriva and alb MDI but no ICS/LABA. Alb neb machine and meds ordered this admission and will be delivered to home. POC IV abx, steroids, IV lasix and monitor electrolytes. Pt needs to have decreased shortness of breath and decreased edema in BLE. 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 EKG NOW 01/31/19 14:16 Elementary Ell Teacher .Continuous 02/02/19 08:48 EKG NOW Abnormal Labs: Abnormal Lab Results 01/31/19 01/31/19 01/31/19 Range/Units 11:39 11:39 11:39 RBC (4.40-5.70) M/uL Hgb 13.6 L (14.0-18.0) gm/dl Hct (42.0-52.0) % MCHC 31.6 L (32-36) g/dl RDW 14.6 H (11.5-14.5) % MPV 10.6 H (7.4-10.4) fl Neutrophils % 83.0 H (47-80) % Lymphocytes % (16-45) % Lymphocytes 6.0 L (16-45) % PT (9.5-12.1) SECONDS pCO2 54.7 H (35-48) mmHg pO2 65.0 L (83-108) mmHg HCO3 31.6 H (18-23) mmol/L Oxyhemoglobin 90.1 L (94-99) % vol ABG O2 Saturation 93.1 L (95-98) % ABG Base Excess 5.6 H (-2 - 3) mmol/L Carboxyhemoglobin 2.0 H (0-1.5) % Total Hemoglobin 12.5 L (14-18) g/dl Actual Respiration Rate 20.0 H (10-18) /MIN Potassium (3.4-4.5) mmol/L Chloride 97 L (98-107) mmol/L Carbon Dioxide 30.0 H (22-29) mmol/L BUN (8-23) mg/dL POC Glucose (70-110) mg/dL Random Glucose 124 H (74-109) mg/dL NT-Pro-B Natriuret Pep 1900.00 H (<125) pg/mL 01/31/19 01/31/19 01/31/19 Range/Units 11:39 17:20 22:00 RBC (4.40-5.70) M/uL Hgb (14.0-18.0) gm/dl Hct (42.0-52.0) % MCHC (32-36) g/dl RDW (11.5-14.5) % MPV (7.4-10.4) fl Neutrophils % (47-80) % Lymphocytes % (16-45) % Lymphocytes (16-45) % PT 12.3 H (9.5-12.1) SECONDS pCO2 (35-48) mmHg pO2 (83-108) mmHg HCO3 (18-23) mmol/L Oxyhemoglobin (94-99) % vol ABG O2 Saturation (95-98) % ABG Base Excess (-2 - 3) mmol/L Carboxyhemoglobin (0-1.5) % Total Hemoglobin (14-18) g/dl Actual Respiration Rate (10-18) /MIN Potassium (3.4-4.5) mmol/L Chloride (98-107) mmol/L Carbon Dioxide (22-29) mmol/L BUN (8-23) mg/dL POC Glucose 217 H 246 H (70-110) mg/dL Random Glucose (74-109) mg/dL NT-Pro-B Natriuret Pep (<125) pg/mL 02/01/19 02/01/19 02/01/19 Range/Units 05:55 05:55 11:30 RBC 4.21 L (4.40-5.70) M/uL Hgb 12.5 L (14.0-18.0) gm/dl Hct 39.5 L (42.0-52.0) % MCHC 31.6 L (32-36) g/dl RDW (11.5-14.5) % MPV 10.5 H (7.4-10.4) fl Neutrophils % 86.0 H (47-80) % Lymphocytes % 5.5 L (16-45) % Lymphocytes 6.0 L (16-45) % PT (9.5-12.1) SECONDS pCO2 (35-48) mmHg pO2 (83-108) mmHg HCO3 (18-23) mmol/L Oxyhemoglobin (94-99) % vol ABG O2 Saturation (95-98) % ABG Base Excess (-2 - 3) mmol/L Carboxyhemoglobin (0-1.5) % Total Hemoglobin (14-18) g/dl Actual Respiration Rate (10-18) /MIN Potassium 5.0 H (3.4-4.5) mmol/L Chloride 96 L (98-107) mmol/L Carbon Dioxide 32.0 H (22-29) mmol/L BUN (8-23) mg/dL POC Glucose 171 H (70-110) mg/dL Random Glucose 189 H (74-109) mg/dL NT-Pro-B Natriuret Pep (<125) pg/mL 02/01/19 02/01/19 02/02/19 Range/Units 17:00 22:07 05:45 RBC (4.40-5.70) M/uL Hgb (14.0-18.0) gm/dl Hct (42.0-52.0) % MCHC (32-36) g/dl RDW (11.5-14.5) % MPV (7.4-10.4) fl Neutrophils % (47-80) % Lymphocytes % (16-45) % Lymphocytes (16-45) % PT (9.5-12.1) SECONDS pCO2 (35-48) mmHg pO2 (83-108) mmHg HCO3 (18-23) mmol/L Oxyhemoglobin (94-99) % vol ABG O2 Saturation (95-98) % ABG Base Excess (-2 - 3) mmol/L Carboxyhemoglobin (0-1.5) % Total Hemoglobin (14-18) g/dl Actual Respiration Rate (10-18) /MIN Potassium 4.8 H (3.4-4.5) mmol/L Chloride 96 L (98-107) mmol/L Carbon Dioxide 33.0 H (22-29) mmol/L BUN 26 H (8-23) mg/dL POC Glucose 264 H 228 H (70-110) mg/dL Random Glucose 177 H (74-109) mg/dL NT-Pro-B Natriuret Pep (<125) pg/mL Condition at Discharge: (2) Stable Discharge Medications - Discharge Medications Prescriptions: Fluticasone/Vilanterol 100/25 [Breo Ellipta 100-25 Mcg INH] 1 puff INH DAILY #1 inhaler Prednisone [Prednisone 20Mg] 20 mg PO BID 3 Days #6 tab Doxycycline Hyclate [Vibramycin] 100 mg PO BID 10 Days #20 capsule Home Medications: Ambulatory Orders Albuterol Sulfate [Proair Hfa] 1 - 2 puff IH .EVERY 4-6 HOURS PRN 01/28/19 [Last Taken 1 Day Ago ~01/30/19] Cyanocobalamin (Vitamin B-12) [Vitamin B12] 1,000 mcg PO DAILY 01/28/19 [Last Taken 1 Day Ago ~01/30/19] Diltiazem HCl [Cartia Xt] 180 mg PO DAILY 01/28/19 [Last Taken 1 Day Ago ~01/30/19] Dofetilide 500 mcg PO BID 01/28/19 [Last Taken 1 Day Ago ~01/30/19] Furosemide 40 mg PO BID 01/28/19 [Last Taken 1 Day Ago ~01/30/19] Glucos Sul 2Kcl/MSM/Chond/C/Mn [Glucosamine Chondroitin Cap] 1 each PO BID 01/28/19 [Last Taken 1 Day Ago ~01/30/19] Insulin Aspart [Novolog Flexpen] 1 unit SQ ASDIR 01/28/19 [Last Taken 1 Day Ago ~01/30/19] Insulin Glargine,Hum.rec.anlog [Lantus Solostar] 90 units SQ QAM 01/28/19 [Last Taken 1 Day Ago ~01/30/19] Losartan Potassium 50 mg PO DAILY 01/28/19 [Last Taken 1 Day Ago ~01/30/19] Magnesium Oxide 400 mg PO DAILY 01/28/19 [Last Taken 1 Day Ago ~01/30/19] Metformin HCl [Metformin HCl ER] 500 mg PO BID 01/28/19 [Last Taken 1 Day Ago ~01/30/19] Metoprolol Succinate [Toprol Xl] 100 mg PO DAILY 01/28/19 [Last Taken 1 Day Ago ~01/30/19] Pantoprazole Sodium [Protonix] 40 mg PO QHS 01/28/19 [Last Taken 1 Day Ago ~01/30/19] Potassium Chloride [Klor-Con M20] 20 meq PO DAILY 01/28/19 [Last Taken 1 Day Ago ~01/30/19] Rivaroxaban [Xarelto] 20 mg PO DAILY 01/28/19 [Last Taken 1 Day Ago ~01/30/19] Simvastatin 20 mg PO QHS 01/28/19 [Last Taken 1 Day Ago ~01/30/19] Tiotropium [place] [Spiriva] 1 puff IH DAILY 01/28/19 [Last Taken 1 Day Ago ~01/30/19] Acetaminophen [Tylenol 500Mg Tab] 500 mg PO Q6H PRN tablet 02/02/19 [Last Taken Unknown] Doxycycline Hyclate [Vibramycin] 100 mg PO BID 10 Days #20 capsule 02/02/19 [Last Taken Unknown] Fluticasone/Vilanterol 100/25 [Breo Ellipta 100-25 Mcg INH] 1 puff INH DAILY #1 inhaler 02/02/19 [Last Taken Unknown] Insulin Aspart [Novolog Flexpen] 1 unit SQ TIDINS ml 02/02/19 [Last Taken Unknown] Insulin Aspart [Novolog Flexpen] 10 unit SQ 0745,1145 ml 02/02/19 [Last Taken Unknown] Insulin Aspart [Novolog Flexpen] 15 unit SQ 1715 ml 02/02/19 [Last Taken Unknown] Ipratropium/Albuterol [Duoneb] 3 ml INH RESP.Q4H.[place] ampul.neb 02/02/19 [Last Taken Unknown] Prednisone [Prednisone 20Mg] 20 mg PO BID 3 Days #6 tab 02/02/19 [Last Taken Unknown] Discharge Plan - Discharge Instructions Diet at Discharge: Advance to Usual Diet Additional Instructions: [facility] will deliver a home nebulizer to you DO NOT TAKE YOUR MAGNESIUM WITH YOUR ANTIBIOTIC, THEY NEED TO BE TAKEN SEPARATELY BY SEVERAL HOURS Keep your follow up appt with Dr Felipe 02/04/19, go to ER for chest pain, difficulty breathing Quality Measures - Quality Measures Quality Measures: Atrial Fibrillation & Atrial Flutter: Chronic Anticoagulation Therapy, Advance Directives, Documentation of Current Medications in Medical Record, Elder Maltreatment Screen and Follow-Up Plan, Heart Failure, Screening for High Blood Pressure and F/U Documented - Current Medications Quality Measure: Measure #130: Documentation of Current Medications Documentation of Current Medications: <Current Medications Documented/Reviewed> [A2718] - Blood Pressure Screening Quality Measure: Screening for High Blood Pressure and Follow-Up Documented Does Patient Have Any of the Following: Active Dx of HTN Blood Pressure Classification: Pre-Hypertensive BP Reading Systolic Measurement: 136 Diastolic Measurement: 69 Screening for High Blood Pressure: Patient Exclusion, Hx of HTN [S0184] - Atrial Fibrillation and Atrial Flutter Quality Measure: Atrial Fibrillation & Atrial Flutter: Chronic Anticoagulation Therapy Does Patient Have Any of the Following: Transient or Reversible Cause of AF CHADS2 Risk Stratification: Diabetes Mellitus Risk Stratification Summary: No risk factors or only one moderate risk factor exists. [T4870] Anticoagulation Therapy: <Oral anticoagulant Prescribed> [X6463] - Heart Failure (HANSEL/ARB Therapy) Quality Measure: Heart Failure Left Ventricular Systolic Function: Unknown HANSEL Inhibitor or ARB Therapy for LVSD: Not Eligible - Heart Failure (Beta-rebecca Therapy) Quality Measure: Heart Failure Left Ventricular Systolic Function: Unknown Beta-Rebecca Therapy for LVEF < 40%: <Beta-Rebecca Therapy Prescribed> [S8874] - Advance Directives Quality Measure: Measure #47: Care Plan Advance Directives Established: No Advance Directives Information Provided To Patient: No Advance Directives on File: No Living Will: Yes Power of Paint Mixer Machine: Yes Power of Paint Mixer Machine Name: jamila Mendez Advance Care Planning: <Care Plan/Decision Maker Documented; Discussed & Documented> [[id number]] - Elder Abuse Suspicion Index Screening: Elder Abuse Suspicion Index Screening Rely on people for bathing, dressing, shopping, banking, etc: No Prevented from getting food, clothes, medication, etc: No Made to feel shamed or threatened by someone: No Forced to sign papers or use money against will: No Feel afraid, touched in ways not wanted or hurt physically: No Poor eye contact, withdrawn, malnourished, cuts or bruises: No Screening Result: Negative result EASI Reference Information: Lennie HERNANDES, Garry C, Caitie D, Nino Pace.Development and validation of a tool to assist physicians identification of elder abuse: The Elder Abuse Suspicion Index (EASI ). Journal of Elder Abuse and Neglect, 2008; 20 (3): 276-300. - Elder Maltreatment Screen Quality Measures: Elder Maltreatment Screen and Follow-Up Plan Elder Maltreatment Screen: <Negative, No Follow-Up Plan Required> [[id number]]
[2019-02-02] MEDS: DOFETILIDE 500 MCG PO SCH (09:36)
[2019-02-02] MEDS: CEFTRIAXONE 1GM/50ML BAG 1 GM/50 ML BAG IVPB SCH (09:36)
[2019-02-02] MEDS: INSULIN GLARGINE HUM REC ANLOG 90 UNIT SQ SCH (09:38)
[2019-02-02] MEDS: Non-Formulary MISC (Losartan Potassium [Losartan Potassium] 50 MG) PO SCH (09:39)
[2019-02-02] MEDS: PATIENT OWN MED: FUROSEMIDE 40 MG PO SCH (09:39)
[2019-02-02] MEDS: METOPROLOL SUCCINATE 100 MG PO SCH (09:39)
[2019-02-02] MEDS: FUROSEMIDE IV 40MG/4ML VIAL IVP SCH (09:39)
[2019-02-02] MEDS: METHYLPREDNISOLONE PF 125MG/VIAL IVP SCH (09:40)
[2019-02-02] MEDS: DOXYCYCLINE HYCLATE 100 MG CAPSULE PO SCH (09:40)
[2019-02-02] MEDS: PATIENT OWN MED: METFORMIN ER 500 MG PO SCH (09:40)
[2019-02-02] MEDS: PATIENT OWN MED: POTASSIUM 20 MEQ PO SCH (09:40)
[2019-02-02] MEDS: BREO (FLUTICASONE/VILANTEROL) 100MCG/25MCG INHALER INH SCH (09:51)
[2019-02-02] MEDS: UMECLIDINIUM BROMIDE (INCRUSE) 62.5MCG IH SCH (09:51)
[2019-02-02] MEDS ORDERED: FUROSEMIDE IV 40MG/4ML VIAL IVP SCH (14:00)
--- NOTE | 2019-02-02 18:16 | RADIOLOGY REPORT ---
EXAM: CHEST 1 VIEW HISTORY: DIFFICULTY BREATHING. RIB PAIN FROM COUGHING. TECHNIQUE: A single portable frontal view of the chest was performed. COMPARISON: 01/28/2019. FINDINGS: A pacemaker is in place and is unchanged. The heart is upper normal in size. The mediastinum and pulmonary vasculature are normal. The lungs appear mildly hyperinflated suggesting underlying COPD. There is minor left basilar atelectasis or scarring. There are no visible acute infiltrates or effusions. There is no pneumothorax. The bones appear intact. Postsurgical changes are present within the right shoulder. IMPRESSION: 1. MINOR LEFT BASILAR ATELECTASIS OR SCARRING. 2. NO ACUTE INTRATHORACIC PATHOLOGY. 3. HYPERINFLATION SUGGESTING UNDERLYING COPD. JOB NUMBER: [id number] [facility]
== END 2019-02-02 13:40 | disposition home or self-care (01) ==
LOC: ER 11:26 → MEDSURG 14:14
PROVIDERS: ADMIT Internal Medicine; ATTEND Internal Medicine
DX: J44.1 Chronic obstructive pulmonary disease with (acute) exacerbation (principal); R05 Cough; I48.91 Unspecified atrial fibrillation; Z79.01 Long term (current) use of anticoagulants; I50.9 Heart failure, unspecified; E11.9 Type 2 diabetes mellitus without complications; D64.9 Anemia, unspecified; M19.90 Unspecified osteoarthritis, unspecified site; Z95.0 Presence of cardiac pacemaker; Z87.891 Personal history of nicotine dependence; Z87.442 Personal history of urinary calculi
CPT/HCPCS: 85730; 85610; 82375; 80048 ×3; 80053; 36416 ×3; 82948 ×3; 82803; 84484; 85027 ×2; 83880; 71045; 94640 ×6; 36600; 94761 ×2; 93005 ×2; 93010; 94760; G0378 ×3; J1815; J0696 ×3; 96374; 96375; 99217; 99220; 99285; J1940; J2930; J7613